=== PATIENT | female | born 1995 | race African-American/Black ===

== ENCOUNTER 2017-02-18 13:26 | Emergency (ER) | payer BC ==
[~2017-02-18] VITALS: Ht 162.6 cm; Wt 56.8 kg
[~2017-02-18 13:26] MED LIST: ALBUTEROL0.83 MG/ML IH; ALBUTEROL1.25 MG/3 IH; AMOXICILLIN 50500 MG PO; BIRTH CONTROL; CEPHALEXIN500 M1 PO; PREDNISONE10 MG PO; PREDNISONE20 MG PO; PROAIR HFA0.09 MG/AC IH; RT ADVAIR 128 DISKUS IH; TUSS PO
[2017-02-18 13:30] VITALS: BP 121/53; PULSE 82; TEMP 97.7
[2017-02-18] MEDS ORDERED: NORCO 325 MG-51 TAB PO (15:08)
== END 2017-02-18 15:20 | disposition home or self-care (01) ==
LOC: COL.ER 13:26
DX: S43.402A Unspecified sprain of left shoulder joint, initial encounter (principal); W18.30XA Fall on same level, unspecified, initial encounter; Y92.318 Other athletic court as the place of occurrence of the external cause

== ENCOUNTER 2017-06-10 10:01 | Emergency (ER) | payer BC ==
[~2017-06-10] VITALS: Ht 162.6 cm; Wt 59.1 kg
[~2017-06-10 10:01] MED LIST changes: +NORCO 325 MG-51 TAB PO
[2017-06-10 10:09] VITALS: TEMP 99
[2017-06-10 10:45] LABS: PH 5 (5-8); SQUAMOUS EPITHELIAL 20-50 /hpf; URINE APPEARANCE Cloudy; URINE BACTERIA None Seen /hpf; URINE BILIRUBIN Positive (NEGATIVE); URINE BLOOD Negative (NEGATIVE); URINE COLOR Amber; URINE GLUCOSE Negative (NEGATIVE); URINE KETONE 1+ (NEGATIVE); URINE UROBILINOGEN Negative (NEGATIVE)
[2017-06-10 11:29] LABS: BASO % 0.5 % (0.0-2.0); EOS # 0.1 (0.0-0.7); GRAN # 5.1 (1.4-6.5); GRAN % 63.7 % (42.2-75.2); LYMPH # 2.1 (1.2-3.4); LYMPH % 26.6 % (20.0-51.0); MEAN CELL VOLUME 85 fl (80.0-100.0); MEAN CORPUSCULAR HGB CONC 33 g/dl (33.0-37.0); MEAN PLATELET VOLUME 10.8 fl (7.4-10.4); MONO # 0.6 (0.1-0.6); MONO % 7.9 % (1.7-9.3); PLATELET COUNT 234 K/mm3 (130-400); REDCELL DISTRIBUTION WIDTH-CV 13.1 % (11.5-14.5)
[2017-06-10 11:30] LABS: HEMATOCRIT 34.7 % (37.0-47.0); HEMOGLOBIN 11.3 g/dl (12.5-16.0); MEAN CORPUSCULAR HEMOGLOBIN 28 pg (27.0-31.0)
[2017-06-10 11:42] LABS: C-REACTIVE PROTEIN 1.1 mg/dL (0.0-0.9)
[2017-06-10 13:04] LABS: ADJUSTED CALCIUM 8.9 mg/dL (8.4-10.2); ALBUMIN 3.5 gm/dL (3.5-5.0); BILIRUBIN,TOTAL 0.8 mg/dL (0.0-1.0); CALCIUM 8.5 mg/dL (8.4-10.2); CREATININE, serum 0.81 mg/dL (0.52-1.25); POTASSIUM 3.5 mmol/L (3.4-5.0); TOTAL PROTEIN 6.5 gm/dL (6.4-8.2)
[2017-06-10] MEDS ORDERED: DOXYCYCLINE 10100 MG PO (13:20)
[2017-06-10] MEDS ORDERED: FLAGYL500 MG PO (13:20)
[2017-06-10 13:38] VITALS: BP 123/82; PULSE 87
[2017-06-10 14:06] LABS: CHLAMYDIA/TRACH by PCR Female NOT DETECTED; NEISSERIA GON by PCR Female NOT DETECTED
== END 2017-06-10 13:39 | disposition home or self-care (01) ==
LOC: COL.ER 10:01
PROVIDERS: Emergency Medicine; Nurse Practitioner
DX: N94.10 Unspecified dyspareunia (principal); R10.2 Pelvic and perineal pain
CPT/HCPCS: J0696; J2405; J3010; J7030

== ENCOUNTER 2018-01-12 07:39 | Emergency (ER) | payer SELFPAY ==
[~2018-01-12] VITALS: Ht 162.6 cm; Wt 59.1 kg
[~2018-01-12 07:39] MED LIST changes: +DOXYCYCLINE 10100 MG PO; +FLAGYL500 MG PO
[2018-01-12 07:46] VITALS: BP 101/74; TEMP 98.2
[2018-01-12] MEDS ORDERED: PROAIR HFA0.09 MG/AC IH (07:48)
[2018-01-12] MEDS ORDERED: MOTRIN 800800 MG/TAB PO (08:07)
[2018-01-12 08:10] LABS: COLLECTION METHOD CLEAN CATCH
[2018-01-12 08:16] LABS: MUCOUS Present /lpf; PH 5 (5-8); URINE APPEARANCE Hazy; URINE BACTERIA None Seen /hpf; URINE BILIRUBIN Negative (NEGATIVE); URINE BLOOD Negative (NEGATIVE); URINE COLOR Yellow; URINE GLUCOSE Negative (NEGATIVE); URINE KETONE Negative (NEGATIVE); URINE LEUKOCYTE ESTERASE Negative (NEGATIVE); URINE NITRATE Negative (NEGATIVE); URINE PROTEIN(semi-quant) Negative (NEGATIVE); URINE RBC 0-2 /hpf
[2018-01-12 08:34] VITALS: PULSE 86
== END 2018-01-12 08:36 | disposition home or self-care (01) ==
LOC: COL.ER 07:39
PROVIDERS: Emergency Medicine
DX: S39.012A Strain of muscle, fascia and tendon of lower back, initial encounter (principal); R51 Headache; R40.2412 Glasgow coma scale score 13-15, at arrival to emergency department; J45.909 Unspecified asthma, uncomplicated; F12.90 Cannabis use, unspecified, uncomplicated; V89.2XXA Person injured in unspecified motor-vehicle accident, traffic, initial encounter